=== PATIENT | male | born 1955 | race Caucasian/White ===

== ENCOUNTER 2022-08-12 11:11 | Emergency (ER) | payer OTHER, SELFPAY ==
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
--- NOTE | ~2022-08-12 | XR_ITS ---
EXAMINATION: XR ribs RT min 3V w CXR1V, XR thoracic spine 2V CLINICAL INFORMATION: Pain COMPARISON: None. TECHNIQUE: PA view of the chest with 3 views of the right ribs. 2 views, 3 images of the thoracic spine. FINDINGS: The lungs are well expanded. No consolidation. No edema or effusion. No pneumothorax. The cardiomediastinal silhouette is within normal limits. A marker overlies the lateral right ribs. No fracture or cortical disruption. Appropriate alignment. Vertebral body height and alignment throughout the thoracic spine. Small endplate osteophytes throughout the thoracic spine. The paravertebral soft tissues are unremarkable. XR/XR thoracic spine 2V IMPRESSION: 1. No acute pulmonary finding. 2. No fracture or malalignment of the right ribs. Mild degenerative change.
--- NOTE | ~2022-08-12 | XR_ITS ---
EXAMINATION: XR ribs RT min 3V w CXR1V, XR thoracic spine 2V CLINICAL INFORMATION: Pain COMPARISON: None. TECHNIQUE: PA view of the chest with 3 views of the right ribs. 2 views, 3 images of the thoracic spine. FINDINGS: The lungs are well expanded. No consolidation. No edema or effusion. No pneumothorax. The cardiomediastinal silhouette is within normal limits. A marker overlies the lateral right ribs. No fracture or cortical disruption. Appropriate alignment. Vertebral body height and alignment throughout the thoracic spine. Small endplate osteophytes throughout the thoracic spine. The paravertebral soft tissues are unremarkable. XR/XR ribs RT min 3V w CXR1V IMPRESSION: 1. No acute pulmonary finding. 2. No fracture or malalignment of the right ribs. Mild degenerative change.
[2022-08-12 11:16] VITALS: BP 146/70; PULSE 60; RESP 18; TEMP 36.7; O2SAT 98; BMI 29.6
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
[2022-08-12 12:24] VITALS: BP 138/38; PULSE 59; RESP 18; O2SAT 100
== END 2022-08-12 14:12 | disposition home or self-care (01) ==
PROVIDERS: Emergency Provider Emergency Medicine Emergency Medical Services; PCP Internal Medicine
DX: S13.4XXA Sprain of ligaments of cervical spine, initial encounter (principal); M54.50 Low back pain, unspecified; M54.2 Cervicalgia; R51.9 Headache, unspecified; R07.81 Pleurodynia; V43.52XA Car driver injured in collision with other type car in traffic accident, initial encounter; Y93.9 Activity, unspecified; Y92.410 Unspecified street and highway as the place of occurrence of the external cause; Y99.9 Unspecified external cause status
CPT/HCPCS: 71101; 72070; 72125; 99283; 99284

== ENCOUNTER 2024-12-07 21:30 | Emergency (ER) | payer BC, SELFPAY ==
--- OUTSIDE RECORDS SUMMARY | 2024-07-11 07:05 | XMS_ITS | Encounter Summary ---
Author Name [facility] Organization [facility] Address [address] [place] [id number] Care Team Providers Care Final Armature Tester Name Role Phone ANGELO NICOLE Primary Care Provider Unavailabl e Insurance Providers: All historical and current Section Date Range: From patient's date of to the date document was created. This section includes the names of all active insurance providers for the patient. Insurance Provider Type of Coverage Plan Name Start of Policy Coverage End of Policy Coverage Group Number Member ID Insurance Provider's Telephone Number Policy Connor's Name Patient's Relationship to Policy Connor [employer] Oct 22, 2004 [id number] ([facility]) [id number] GLENNA HERNANDEZ SPOUSE MEDICARE (WNR) MEDICARE (M) PART A May 25, 2020 PART A [id number] ELSIE HERNANDEZ JR PATIENT MEDICARE (WNR) MEDICARE (M) PART B May 25, 2020 PART B [id number] ELSIE HERNANDEZ JR PATIENT Selected Encounter This section includes the information on record at ME for the Encounter. Date/Time Encounter Type Encounter Description Reason Provider Source Jul 11, 2024 11:05 AM OFF/OP EST AUGUST X REQ PHY/QHP PRIMARY CARE/MEDICINE ICD-10-CM I10 Essential (primary) hypertension HAYDEN REYES Encounter Template Text not used by ME Assessments - Encounter Diagnoses This section includes the primary and secondary diagnoses documented for the Encounter. Date/Time Primary/Secondary Diagnosis Diagnosis Name Provider Source Jul 11, 2024 12:06 PM PRIMARY Essential (primary) hypertension HAYDEN REYES COTY [place] [facility] [place] [facility] Plan of Treatment: Future Appointments (+ 6 months) and Future Tests (+/- 45 days) The Plan of Treatment section includes future care activities for the patient from all [place] treatmentfacilities. This section includes future appointments and future orders which are active, pending or scheduled. Future Appointments This section includes appointments that were scheduled to occur 6 months from the date of the Encounter, up to a maximum of 20 appointments. The data comes from all ME treatment facilities. Appointment Date/Time Appointment Type Appointme nt Facility Name Aug 06, 2024 08:30 AM AMBULATORY - MEDICINE [facility] [place] [facility] Aug 07, 2024 08:00 AM AMBULATORY - MEDICINE [facility] [place] [facility] Sep 30, 2024 10:30 AM AMBULATORY - SURGERY [facility] [place] [facility] Nov 05, 2024 09:00 AM AMBULATORY - MEDICINE [facility] [place] [facility] Nov 14, 2024 10:00 AM AMBULATORY - MEDICINE [facility] [place] [facility] Nov 21, 2024 11:30 AM AMBULATORY - NONE [facility] [place] [facility] Dec 26, 2024 11:00 AM AMBULATORY - [facility] Vital Signs: All taken on the encounter date This section contains inpatient and outpatient Vital Signs collected on the date of the Encounter. Date/Time Temperature Pulse Blood Pressure Respiratory Rate SP02 Pain Height Weight Body Mass Index Source Jul 11, 2024 11:05 AM 59 166/74 [facility] Social History: Smoking Status (Most current) and Tobacco Use (All prior to encounter date) This section includes the most current, and the historical, smoking and tobacco- related health factors from the ME facility where the Encounter took place. Current Smoking Status This section includes the most current smoking, or tobacco-related health factor, from the ME facility where the Encounter took place. Date/Time Current Smoking Status Comment Facil ity May 06, 2024 09:00 AM VA-TOBACCO USE FOR CLEMENTE CIGARETTES [facility] [place] [facility] Tobacco Use History This section includes a history of the smoking, or tobacco-related health factors, that were collected on or before the date of the Encounter. The data comes from the ME facility where the Encounter took place. Date/Time Smoking Status/Tobac co Use Comment Facility May 06, 2024 09:00 AM VA-TOBACCO USE FORMER CIGARETTES [facility] [place] [facility] May 04, 2023 10:30 AM VA-TOBACCO FORMER USER [facility] [place] [facility] May 04, 2023 10:30 AM VA-TOBACCO QUIT 15 YRS OR MORE [facility] [place] [facility] Apr 28, 2022 08:30 AM VA-TOBACCO FORMER USER [facility] [place] [facility] Apr 28, 2022 08:30 AM VA-TOBACCO QUIT 5 TO < 15 YRS [facility] [place] [facility] Apr 07, 2021 10:00 AM VA-TOBACCO FORMER USER [facility] [place] [facility] Apr 07, 2021 10:00 AM VA-TOBACCO QUIT 15 YRS OR MORE [facility] [place] [facility] Mar 24, 2020 10:30 AM VA-TOBACCO NEVER USED [facility] [place] [facility] Mar 18, 2019 12:25 PM VA-TOBACCO FORMER USER [facility] [place] [facility] Mar 18, 2019 12:25 PM VA-TOBACCO QUIT 5 TO < 15 YRS [facility] [place] [facility] Nov 04, 2004 11:29 AM CURRENT SMOKER Currently 1/2ppd [facility] [place] [facility] September 01, 2003 01:19 PM HISTORY OF SMOKING Quit in 1997 [facility] [place] [facility] September 01, 2003 01:19 PM QUIT TOBACCO USE 1-7 YEARS AGO Quit in 1997 [facility] [place] [facility] September 01, 2003 01:19 PM QUIT TOBACCO USE IN PAST YEAR Quit in 1997 [facility] [place] [facility] Apr 29, 2002 10:05 AM [facility] [place] [facility] Encounter Notes: All associated encounter notes This section contains the clinical notes associated to the Encounter. Date/Time Encounter Note(s) Provider Source Jul 12, 2024 09:52 AM ADDENDUM: LOCAL TITLE: Addendum STANDARD TITLE: ADDENDUM DATE OF NOTE: JUL 12, 2024@09:52:04 ENTRY DATE: JUL 12, 2024@09:52:06 AUTHOR: CHRISTINA REYES COSIGNER: URGENCY: STATUS: COMPLETED [facility] notified of new medication OUTPT AMLODIPINE BESYLATE 5MG TAB (Status = Active) TAKE ONE TABLET BY MOUTH ONCE DAILY FOR BLOOD PRESSURE/HEART, DO NOT TAKE WITH GRAPEFRUIT JUICE Rx# [id number] Last Released: Qty/ Supply: Rx Expiration Date: 07/12/25 Refills Remainin Indication: FOR HIGH BLOOD PRESSURE will call this service writer when new medication arrives. /es/ CHRISTINA REYES RN HOME TELEHEALTH RADIATION SAFETY OFFICER Signed: 07/12/2024 09:53 Receipt Acknowledged By: 07/12/2024 12:46 /es/ NICOLE STEPHENS D.O. PHYSICIAN --- Original Document --- 07/11/24 VIDEO BLOOD PRESSURE VISIT: Telehealth Disclosure: Visit conducted by synchronous telehealth. Patient verbal consent obtained. Location/emergency number confirmed. Environment surveyed and all participants identified. Virtual conference room locked. Reason For Visit: Evaluation of blood pressure. Patient address during visit: Home [address] [place] [id number] Emergency number confirmed: PATIENT PHONE - [phone] Blood pressure measurement was directly visualized by this clinician on a [place] issued blood pressure cuff through video conferencing, and the results interpreted by this clinician. Patient demonstrates correct use for home BP measurements. Blood Pressure: 166/74 Pulse: 59 BLOOD PRESSURE MEDICATION REVIEW: ALLERGY/ADVERSE REACTIONS: METFORMIN Active Outpatient Medications (including Supplies): Active Outpatient Medications Status 1) ATORVASTATIN CALCIUM 80MG TAB TAKE ONE-HALF TABLET BY MOUTH ACTIVE ONCE DAILY FOR CHOLESTEROL Indication: FOR HIGH CHOLESTEROL 2) LABETALOL HCL 200MG TAB TAKE ONE TABLET BY MOUTH TWICE DAILY ACTIVE FOR BLOOD PRESSURE 3) LISINOPRIL 30MG TAB TAKE ONE TABLET BY MOUTH ONCE DAILY TO ACTIVE CONTROL BLOOD PRESSURE DOSE INCREASE Indication: FOR HIGH BLOOD PRESSURE No changes or additions to allergies/adverse reactions. No medication changes since last appointment. Relevant Labs: Collection DT Spec GLUCOSE BUN CREATIN Sodium K+/Pot CL CO2 04/30/2024 07:42 SERUM 148 H 20 1.22 140 4.0 108 22 OPTIMIZE TREATMENT: Assessed medication adherence. Comment: Patient takes all medications as prescribed The patient was counseled on the importance of diet and weight loss/ control in the regulation of blood pressure. The contribution of dietary sodium to elevated blood pressure was reviewed. The patient was counseled to have a goal sodium intake of 1500mg per day, with no more than 2300mg per day. Confirmed [facility] is using BPM according to vendor instructions; had been using BP cuff with tubing underneath his arm, potentially infering with air flow. [facility] agrees to utilize as instructed. Batteries in BPM reading low and agrees to replace after video visit. acknowledges that BP can often be elevated when he becomes frustrated when completing tasks he is unable to do appropriately and notes elevated blood pressure as a result. takes time to relax when this occurs and will recheck later on. 24 hour diet recall: Lunch: macaroni and cheese with hamburger ([facility] notes homemade but tasted salty). Snack: Handful of reduced sodium horseradish cheddar potato chips Dinner: homemade chicken noodle soup with carrots, onions, peas, celery Snack: handful of potato chips as above Breakfast: 12 storebought chicken nuggets with jalepeno ranch dressing Discussed with at length high sodium/high fat dietary choices in 24 hour recall and impact this could be having on blood pressure and overall health. [facility] states he reads nutrition labels and does not use additional table salt on meals and verbalizes dietary recommendations of <1500mg sodium per day. [facility] notes eating a variety of vegetables, however does not care for fruit. [facility] drinks 16.9oz x3 bottles of water per day + 32 oz coffee per day. Asked [facility] if he has intentions of dietary improvements to which [facility] states he would. Asked [facility] to keep record of daily dietary intake over the next 5 days to compare with blood pressure readings. Plan to review with next Monday at 10:00 and identify areas of change. Length of Encounter: 50 minutes /es/ CHRISTINA REYES RN HOME TELEHEALTH RADIATION SAFETY OFFICER Signed: 07/11/2024 12:06 Receipt Acknowledged By: 07/11/2024 12:16 /es/ NICOLE STEPHENS D.O. PHYSICIAN 07/11/2024 ADDENDUM STATUS: COMPLETED Patient Name: VALERIE HERNANDEZ Disease(s): Hypertension Date Range: 06/13/2024 - 07/11/2024 [facility] Vitals Report Reading Date Sys/Latasha BP-HR 07/11/24 140/66 (09:15) 61 (09:15) 07/10/24 152/66 (09:49) 62 (09:49) 07/09/24 153/71 (13:49) 60 (13:49) 07/08/24 168/67 (10:56) 58 (10:56) 07/05/24 146/60 (12:40) 57 (12:40) 07/04/24 164/78 (10:55) 58 (10:55) 07/02/24 161/73 (10:23) 57 (10:23) 07/01/24 148/70 (10:04) 58 (10:04) 06/28/24 168/72 (10:11) 60 (10:11) 06/27/24 147/66 (10:16) 57 (10:16) 06/26/24 136/65 (08:37) 62 (08:37) 06/25/24 149/66 (12:29) 57 (12:29) 06/24/24 140/66 (09:18) 61 (09:18) 06/21/24 158/68 (09:51) 55 (09:51) 06/20/24 132/65 (11:18) 65 (11:18) 06/19/24 196/96 (07:53) 52 (07:53) 06/18/24 174/120 (12:59) 55 (12:59) 06/17/24 173/76 (17:58) 67 (17:58) 06/14/24 146/69 (07:53) 60 (07:53) 06/13/24 122/54 (08:14) 61 (08:14) Blood Pressure Readings: Date 04:00-12:00 12:00-18:00 18:00-04:00 07/11/24 140/66 61(09:15) 07/10/24 152/66 62(09:49) 07/09/24 153/71 60(13:49) 07/08/24 168/67 58(10:56) 07/05/24 146/60 57(12:40) 07/04/24 164/78 58(10:55) 07/02/24 161/73 57(10:23) 07/01/24 148/70 58(10:04) 06/28/24 168/72 60(10:11) 06/27/24 147/66 57(10:16) 06/26/24 136/65 62(08:37) 06/25/24 149/66 57(12:29) 06/24/24 140/66 61(09:18) 06/21/24 158/68 55(09:51) 06/20/24 132/65 65(11:18) 06/19/24 196/96 52(07:53) 06/18/24 174/120 55(12:59) 06/17/24 173/76 67(17:58) 06/14/24 146/69 60(07:53) 06/13/24 122/54 61(08:14) [facility] Average Report Sys/Latasha BP-HR Average 154/72 59 High 196/120 67 Low 122/54 52 Blood Pressure Summary: 04:00-12:00 12:00-18:00 18:00-04:00 Average 152/69 59 159/79 59 High 196/96 65 174/120 67 Low 122/54 52 146/60 55 /dontrell/ CHRISTINA REYES RN HOME TELEHEALTH RADIATION SAFETY OFFICER Signed: 07/11/2024 12:07 07/11/2024 ADDENDUM STATUS: COMPLETED as BP still elevated- recommend adding amlodipine 5 mg daily. he will continued to take other BP meds already on. goal is <140/90. I have sent RX to home. please notify patient. thanks /dontrell/ NICOLE STEPHENS D.O. PHYSICIAN Signed: 07/11/2024 12:17 CHRISTINA REYES [facility] [place] [facility] Jul 11, 2024 11:05 AM TELEHEALTH NOTE: LOCAL TITLE: VIDEO BLOOD PRESSURE VISIT STANDARD TITLE: TELEHEALTH NOTE DATE OF NOTE: JUL 11, 2024@11:05 ENTRY DATE: JUL 11, 2024@11:05:40 AUTHOR: CHRISTINA REYES EXP COSIGNER: URGENCY: STATUS: COMPLETED VIDEO BLOOD PRESSURE VISIT Has ADDENDA Telehealth Disclosure: Visit conducted by synchronous telehealth. Patient verbal consent obtained. Location/emergency number confirmed. Environment surveyed and all participants identified. Virtual conference room locked. Reason For Visit: Evaluation of blood pressure. Patient address during visit: Home [address] [place] [address] Emergency number confirmed: PATIENT PHONE - [phone] Blood pressure measurement was directly visualized by this clinician on a [place] issued blood pressure cuff through video conferencing, and the results interpreted by this clinician. Patient demonstrates correct use for home BP measurements. Blood Pressure: 166/74 Pulse: 59 BLOOD PRESSURE MEDICATION REVIEW: ALLERGY/ADVERSE REACTIONS: METFORMIN Active Outpatient Medications (including Supplies): Active Outpatient Medications Status 1) ATORVASTATIN CALCIUM 80MG TAB TAKE ONE-HALF TABLET BY MOUTH ACTIVE ONCE DAILY FOR CHOLESTEROL Indication: FOR HIGH CHOLESTEROL 2) LABETALOL HCL 200MG TAB TAKE ONE TABLET BY MOUTH TWICE DAILY ACTIVE FOR BLOOD PRESSURE 3) LISINOPRIL 30MG TAB TAKE ONE TABLET BY MOUTH ONCE DAILY TO ACTIVE CONTROL BLOOD PRESSURE DOSE INCREASE Indication: FOR HIGH BLOOD PRESSURE No changes or additions to allergies/adverse reactions. No medication changes since last appointment. Relevant Labs: Collection DT Spec GLUCOSE BUN CREATIN Sodium K+/Pot CL CO2 04/30/2024 07:42 SERUM 148 H 20 1.22 140 4.0 108 22 OPTIMIZE TREATMENT: Assessed medication adherence. Comment: Patient takes all medications as prescribed The patient was counseled on the importance of diet and weight loss/ control in the regulation of blood pressure. The contribution of dietary sodium to elevated blood pressure was reviewed. The patient was counseled to have a goal sodium intake of 1500mg per day, with no more than 2300mg per day. Confirmed [facility] is using BPM according to vendor instructions; [facility] had been using BP cuff with tubing underneath his arm, potentially infering with air flow. agrees to utilize as instructed. Batteries in BPM reading low and agrees to replace after video visit. [facility] acknowledges that BP can often be elevated when he becomes frustrated when completing tasks he is unable to do appropriately and notes elevated blood pressure as a result. [facility] takes time to relax when this occurs and will recheck later on. 24 hour diet recall: Lunch: macaroni and cheese with hamburger ([facility] notes homemade but tasted salty). Snack: Handful of reduced sodium horseradish cheddar potato chips Dinner: homemade chicken noodle soup with carrots, onions, peas, celery Snack: handful of potato chips as above Breakfast: 12 storebought chicken nuggets with jalepeno ranch dressing Discussed with [facility] at length high sodium/high fat dietary choices in 24 hour recall and impact this could be having on blood pressure and overall health. states he reads nutrition labels and does not use additional table salt on meals and verbalizes dietary recommendations of <1500mg sodium per day. notes eating a variety of vegetables, however does not care for fruit. drinks 16.9oz x3 bottles of water per day + 32 oz coffee per day. Asked if he has intentions of dietary improvements to which states he would. Asked to keep record of daily dietary intake over the next 5 days to compare with blood pressure readings. Plan to review with [facility] next Monday at 10:00 and identify areas of change. Length of Encounter: 50 minutes /es/ CHRISTINA REYES RN HOME TELEHEALTH RADIATION SAFETY OFFICER Signed: 07/11/2024 12:06 Receipt Acknowledged By: 07/11/2024 12:16 /dontrell/ NICOLE STEPHENS D.O. PHYSICIAN 07/11/2024 ADDENDUM STATUS: COMPLETED Patient Name: VALERIE HERNANDEZ Disease(s): Hypertension Date Range: 06/13/2024 - 07/11/2024 [facility] Vitals Report Reading Date Sys/Latasha BP-HR 07/11/24 140/66 (09:15) 61 (09:15) 07/10/24 152/66 (09:49) 62 (09:49) 07/09/24 153/71 (13:49) 60 (13:49) 07/08/24 168/67 (10:56) 58 (10:56) 07/05/24 146/60 (12:40) 57 (12:40) 07/04/24 164/78 (10:55) 58 (10:55) 07/02/24 161/73 (10:23) 57 (10:23) 07/01/24 148/70 (10:04) 58 (10:04) 06/28/24 168/72 (10:11) 60 (10:11) 06/27/24 147/66 (10:16) 57 (10:16) 06/26/24 136/65 (08:37) 62 (08:37) 06/25/24 149/66 (12:29) 57 (12:29) 06/24/24 140/66 (09:18) 61 (09:18) 06/21/24 158/68 (09:51) 55 (09:51) 06/20/24 132/65 (11:18) 65 (11:18) 06/19/24 196/96 (07:53) 52 (07:53) 06/18/24 174/120 (12:59) 55 (12:59) 06/17/24 173/76 (17:58) 67 (17:58) 06/14/24 146/69 (07:53) 60 (07:53) 06/13/24 122/54 (08:14) 61 (08:14) Blood Pressure Readings: Date 04:00-12:00 12:00-18:00 18:00-04:00 07/11/24 140/66 61(09:15) 07/10/24 152/66 62(09:49) 07/09/24 153/71 60(13:49) 07/08/24 168/67 58(10:56) 07/05/24 146/60 57(12:40) 07/04/24 164/78 58(10:55) 07/02/24 161/73 57(10:23) 07/01/24 148/70 58(10:04) 06/28/24 168/72 60(10:11) 06/27/24 147/66 57(10:16) 06/26/24 136/65 62(08:37) 06/25/24 149/66 57(12:29) 06/24/24 140/66 61(09:18) 06/21/24 158/68 55(09:51) 06/20/24 132/65 65(11:18) 06/19/24 196/96 52(07:53) 06/18/24 174/120 55(12:59) 06/17/24 173/76 67(17:58) 06/14/24 146/69 60(07:53) 06/13/24 122/54 61(08:14) [facility] Average Report Sys/Latasha BP-HR Average 154/72 59 High 196/120 67 Low 122/54 52 Blood Pressure Summary: 04:00-12:00 12:00-18:00 18:00-04:00 Average 152/69 59 159/79 59 High 196/96 65 174/120 67 Low 122/54 52 146/60 55 /es/ CHRISTINA REYES RN HOME TELEHEALTH RADIATION SAFETY OFFICER Signed: 07/11/2024 12:07 07/11/2024 ADDENDUM STATUS: COMPLETED as BP still elevated- recommend adding amlodipine 5 mg daily. he will continued to take other BP meds already on. goal is <140/90. I have sent RX to home. please notify patient. thanks /dontrell/ NICOLE STEPHENS D.O. PHYSICIAN Signed: 07/11/2024 12:17 07/12/2024 ADDENDUM STATUS: COMPLETED [facility] notified of new medication OUTPT AMLODIPINE BESYLATE 5MG TAB (Status = Active) TAKE ONE TABLET BY MOUTH ONCE DAILY FOR BLOOD PRESSURE/HEART, DO NOT TAKE WITH GRAPEFRUIT JUICE Rx# [id number] Last Released: Qty/Days Supply: 90/90 Rx Expiration Date: 07/12/25 Refills Remainin Indication: FOR HIGH BLOOD PRESSURE [facility] will call this service writer when new medication arrives. /dontrell/ CHRISTINA REYES RN HOME TELEHEALTH RADIATION SAFETY OFFICER Signed: 07/12/2024 09:53 Receipt Acknowledged By: * AWAITING SIGNATURE * NICOLE STEPHENS [facility]
[2024-12-07 21:38] VITALS: BP 159/67; PULSE 53; RESP 18; TEMP 36.7; O2SAT 96; BMI 32.7
--- OUTSIDE RECORDS SUMMARY | 2024-12-07 23:52 | XMS_ITS | Encounter Summary ---
Author Organization [facility] Address [address] [facility] [address] [place] [phone] Phone Care Team Providers Care Electrotype Molder Name Role Phone Wilma Fisher MD Primary Care Provider [phone] Encounter Details Date Type Department Care Team (Late st Contact Info) Description 01/12/2021 Procedure Pass [address] [address] Social History Tobacco Use Types Packs/Day Years Used Date Smoking Tobacco: Never Assessed Sex and Gender Information Value Date Recorded Sex Assigned at Not on file Legal Sex Male 4:10 PM EDT Gender Identity Not on file Sexual Orientation Not on file documented as of this encounter Plan of Treatment Not on file documented as of this encounter Visit Diagnoses Not on filedocumented in this encounter Care Teams Electrotype Molder Relationship Specialty Start Date End Date Wilma Fisher MD [address] [place] [id number] PCP - General Internal Medicine 01/19/21 documented as of this encounter Additional Source Comments The information contained in this document represents components of the legal health record. It is not the complete legal health record.[facility]
== END 2024-12-08 00:05 | disposition left against medical advice (07) ==
PROVIDERS: Emergency Provider Emergency Medicine
DX: T16.1XXA Foreign body in right ear, initial encounter (principal); W44.G1XA Audio device entering into or through a natural orifice, initial encounter; Y93.9 Activity, unspecified; Y92.9 Unspecified place or not applicable; Y99.9 Unspecified external cause status; Z53.21 Procedure and treatment not carried out due to patient leaving prior to being seen by health care provider
CPT/HCPCS: 99281

== ENCOUNTER 2024-12-09 14:12 | Outpatient (AMB) | payer MEDICARE, SELFPAY ==
[2024-12-09 14:32] VITALS: BP 138/60; PULSE 70; TEMP 36.7; O2SAT 97; BMI 33.0
--- NOTE | 2024-12-09 14:32 | AM.OFFWIN_ITS ---
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 - The issue began after water entered th e ear during a shower, leading to the sensation of a bubble and subsequent attempts to remove it, which pushed the foreign body further into the ear canal. - The patient attempted to remove the ob struction, which resulted in some bleeding and wax accumulation in the ear. Physical Exam General: Cooperative, healthy appearing, comfortable, no acute distress and well developed Orientation: Patient oriented x3 Limitations: No limitations Head: Normal to inspection Ears: Cap to hearing aid in right EAC - removed with no issues - s/p removal, TM on the right is normal, right EAC is normal Nose: Normal External nose present Face and sinus: Normal facial exam Mouth: normal, moist oral mucosa Eyes: Appearance normal, both eyes and all related structures Neck: Normal visual inspection and Yes full ROM Respiratory: Normal respiratory effort and able to speak in complete sentences. Skin: no rashes or lesions noted Neuro: Patient oriented x3 Extremities: moving all extremities normally PFSH Social History Patient Tobacco Use Status: Former Tobacco user Review of Systems Const All systems reviewed & are unremarkable except as noted in HPI and below Physical Exam Vital Signs: Last Vital Signs Temp 98.0 F 12/09/24 14:32 Pulse 70 12/09/24 14:32 BP 138/60 12/09/24 14:32 Pulse Ox 97 12/09/24 14:32 Oxygen Delivery Method Room Air 12/09/24 14:32 BMI result Body Mass Index 33.0 Office Procedures AMB Foreign Body Removal Details: tip of hearing aid removed easily with alligators, right TM and EAC clear s/p removal Foreign Body Removal, External Auditory Canal: 33273 - Foreign body removal, external auditory canal Procedure code (CPT) selection complete Assessment & Plan Assessment & Plan (1) Foreign body in right ear, initial encounter: Code(s): T16.1XXA - Foreign body in right ear, initial encounter Plan: Plan Patient was informed and verbally consented to the use of an ambient scribe for clinic note documentation during this visit Foreign Body In Ear Canal - The foreign body was identified and removed easily from the right ear canal. - Post-removal examination showed some blood and wax, but no significant damage to the ear canal. - The patient was advised against inserting objects into the ear canal in the future. Orders: Orders AMB Removal of foreign body Today T16.1XXA - Foreign body in right ear, initial encounter Coding Level of Care Code New Pt Level 2 (39262) Diagnoses Foreign body in right ear, initial encounter T16.1XXA CPT Codes Details - Foreign body removal, external auditory canal: 78334 - Foreign body removal, external auditory canal ([id number])
--- OUTSIDE RECORDS SUMMARY | 2024-12-09 14:59 | XMS_ITS | Encounter Summary ---
Author Organization [facility] Address [address] [place] [id number] Phone Care Team Providers Care Cannery Tender Engineer Name Role Phone Wilma Fisher MD Primary Care Provider [phone] Encounter Details Date Type Department Care Team (Late st Contact Info) Description 01/12/2021 Procedure Pass [address] [id number] Social History Tobacco Use Types Packs/Day Years [...] on filedocumented in this encounter Care Teams Cannery Tender Engineer Relationship Specialty Start Date End Date Wilma Fisher MD [address] [place] [id number] PCP - General Internal Medicine 01/19/21 documented as of this encounter Additional Source Comments The information contained in this document represents components of the legal health record. It is not the complete legal health record.[facility]
== END 2024-12-09 15:00 | disposition home or self-care (01) ==
PROVIDERS: Visit Provider Physician Assistant
DX: T16.1XXA Foreign body in right ear, initial encounter (principal)

== ENCOUNTER → 2024-12-09 14:12 | Outpatient (BNVA) | payer MEDICARE, SELFPAY | PROVIDERS: Visit Provider Physician Assistant | DX: T16.1XXA Foreign body in right ear, initial encounter (principal) | CPT/HCPCS: 69200; 99202 ==